=== PATIENT | female | born 1985 | race Caucasian/White ===

== ENCOUNTER 2019-04-16 11:23 | Inpatient (IN) ==
[2019-04-16] MEDS ORDERED: CITRIC ACID/SODIUM CITRATE 30 ML UDCUP PO ONE (11:29)
[2019-04-16] MEDS ORDERED: ceFAZolin 2,000 MG in SYRINGE 1 EACH IV ONE (11:29)
[2019-04-16] MEDS ORDERED: FAMOTIDINE 20 MG/2 ML VIAL IV ONE (11:29)
[2019-04-16] MEDS ORDERED: diphenhydrAMINE 50 MG/1 ML VIAL IV PRN ×2 (11:30)
[2019-04-16] MEDS ORDERED: PROMETHAZINE 25 MG/1 ML VIAL IM ONE ×2 (11:30→18:31)
[2019-04-16] MEDS ORDERED: hydrOXYzine HCL 25 MG/1 ML VIAL IM PRN (11:30)
[2019-04-16] MEDS ORDERED: ONDANSETRON 4 MG/2 ML VIAL IV ONE (11:30)
[2019-04-16] MEDS ORDERED: LACTATED RINGERS 1,000 ML IV ONE (11:30)
[2019-04-16 11:45] LABS: Basophils % 0.4 % (0.0-0.8); Eosinophils # 0.2 10*3/uL (0.0-0.87); Eosinophils % 1.9 % (0.00-10.9); Hematocrit 37.4 VOL% (35.7-47.0); Hemoglobin 12.4 GM/DL (12.0-16.0); Immature Granulocytes % 0.8 %; Immature Granulocytes Absolute 0.06 #; Lymphocytes # 1.8 10*3/uL (1.4-4.0); Lymphocytes % 22.4 % (21.3-54.2); Mean Corpuscular HGB Conc 33.2 GM/DL (32-36); Mean Platelet Volume 11.3 FL (9.6-12.0); Monocytes % 6.4 % (1.7-12.7); Neutrophils % 68.1 % (38.7-73.9); Platelet Count 153 T/CUMM (130-400); Red Cell Distribution Width 13.2 % (9.3-17.3)
[2019-04-16] MEDS ORDERED: PHENYLEPHRINE 1 MG/10 ML SYRINGE IV ONE (12:14)
[2019-04-16] MEDS ORDERED: BUPIVACAINE SPINAL 0.75% 2 ML AMP SPINAL ONE (12:14)
[2019-04-16] MEDS ORDERED: MORPHINE 10 MG/10 ML VIAL ONE (12:14)
[2019-04-16 12:19] LABS: Alanine Aminotransferase 15 U/L (13-56); Albumin 2.4 G/DL (3.4-5.0); Alkaline Phosphatase 197 U/L (45-117); Aspartate Amino Transferase 22 U/L (0-37); Bilirubin,Total < 0.39 MG/DL (0.2-1.0); Blood Urea Nitrogen 6 MG/DL (7-18); Calcium 8.9 MG/DL (8.5-10.1); Glucose 74 MG/DL (74-106); Osmolality,Calculated 271.7 MOS/KG (273-304); Total Protein 6.1 G/DL (6.4-8.3)
[2019-04-16] MEDS: LACTATED RINGERS 1,000 ML IV SCH ×2 (12:30→21:59)
[2019-04-16] MEDS ORDERED: OXYTOCIN/LR 20 UNIT/1,000 ML BAG IV ONE ×2 (13:01→13:42)
[2019-04-16] MEDS ORDERED: ACETAMINOPHEN 325 MG TABLET PO PRN (13:42)
[2019-04-16] MEDS ORDERED: RHO(D) IMMUNE GLOBULIN 300 MCG SYRINGE IM ONE (13:42)
[2019-04-16] MEDS ORDERED: ONDANSETRON 4 MG/2 ML VIAL IV PRN (13:42)
[2019-04-16] MEDS ORDERED: MAGNESIUM HYDROXIDE SUSP 30 ML UDCUP PO PRN (13:42)
[2019-04-16 13:45] LABS: Apearance,Urine CLEAR (Clear); Bacteria,Urine Occasional /HPF (Few); Bilirubin,Urine Negative (Negative); Blood, Urine Negative (Negative); Glucose,Urine (UA) Negative (Negative); Ketones,Urine 5 mg/dL (Negative); Nitrite,Urine Negative (Negative); Protein,Urine Negative; Squamous Epithelial Cell,Urine Occasional /HPF (0-10); Urine Color Straw (Yellow); Urine Specific Gravity 1.004 (1.001-1.035); Urine Urobilinogen < 2.0 EU/DL (0.2-1.0); WBC,Urine <1 /HPF (0-6)
[2019-04-16] MEDS ORDERED: ceFAZolin 1,000 MG in SYRINGE 1 EACH IV SCH (14:00)
[2019-04-16] MEDS ORDERED: MIDAZOLAM 2 MG/2 ML VIAL ONE (14:02)
[2019-04-16] MEDS: IBUPROFEN 800 MG TABLET PO PRN (15:54)
[2019-04-16] MEDS ORDERED: PROMETHAZINE 25 MG/1 ML VIAL ONE (18:30)
[2019-04-16] MEDS: ONDANSETRON 4 MG/2 ML VIAL IV PRN (20:17)
[2019-04-16] MEDS: KETOROLAC 30 MG/1 ML VIAL IV SCH (20:21)
[2019-04-16] MEDS: ACETAMINOPHEN 500 MG TABLET PO SCH (21:36)
[2019-04-16] MEDS: DOCUSATE SODIUM 100 MG CAPSULE PO SCH (21:36)
[2019-04-17] MEDS: ONDANSETRON 4 MG/2 ML VIAL IV PRN (00:46)
[2019-04-17] MEDS: KETOROLAC 30 MG/1 ML VIAL IV SCH (04:10)
[2019-04-17] MEDS: ACETAMINOPHEN 500 MG TABLET PO SCH ×3 (05:07→16:00)
[2019-04-17 07:13] LABS: Basophils # 0.1 10*3/uL (0.0-0.2); Basophils % 0.3 % (0.0-0.8); Eosinophils % 0.2 % (0.00-10.9); Hematocrit 34.3 VOL% (35.7-47.0); Hemoglobin 11.7 GM/DL (12.0-16.0); Immature Granulocytes % 0.6 %; Immature Granulocytes Absolute 0.11 #; Lymphocytes # 2.2 10*3/uL (1.4-4.0); Lymphocytes % 12.6 % (21.3-54.2); Mean Corpuscular HGB Conc 34.1 GM/DL (32-36); Mean Corpuscular Volume 89.1 FL (87-102); Monocytes % 7.2 % (1.7-12.7); Neutrophils % 79.1 % (38.7-73.9); Platelet Count 177 T/CUMM (130-400); Red Blood Count 3.85 MC/CUMM (3.8-5.5); Red Cell Distribution Width 13.2 % (9.3-17.3); White Blood Count 17.5 T/CUMM (4-12)
[2019-04-17] MEDS ORDERED: METOCLOPRAMIDE 10 MG TABLET PO PRN ×2 (07:26→08:00)
[2019-04-17] MEDS: DOCUSATE SODIUM 100 MG CAPSULE PO SCH ×2 (07:39→20:47)
[2019-04-17] MEDS: MULTIVITAMIN (PRENATAL) TABLET PO SCH (07:39)
[2019-04-17] MEDS ORDERED: ceFAZolin 1,000 MG in SYRINGE 1 EACH IV SCH (08:00)
[2019-04-17] MEDS ORDERED: KETOROLAC 10 MG TABLET PO SCH ×3 (10:00→16:00)
[2019-04-17] MEDS: LACTATED RINGERS 1,000 ML IV SCH ×2 (11:36→11:42)
[2019-04-17] MEDS: SIMETHICONE CHEW 80 MG TABLET PO PRN ×2 (14:18→20:47)
[2019-04-17] MEDS: METOCLOPRAMIDE 10 MG TABLET PO SCH (15:55)
[2019-04-18] MEDS: METOCLOPRAMIDE 10 MG TABLET PO SCH ×4 (05:02→23:44)
[2019-04-18] MEDS: MULTIVITAMIN (PRENATAL) TABLET PO SCH (08:38)
[2019-04-18] MEDS: DOCUSATE SODIUM 100 MG CAPSULE PO SCH ×2 (08:38→20:39)
[2019-04-18] MEDS: SIMETHICONE CHEW 80 MG TABLET PO PRN (08:42)
[2019-04-18] MEDS ORDERED: FUROSEMIDE 40 MG TABLET PO ONE (08:53)
[2019-04-18] MEDS: IBUPROFEN 800 MG TABLET PO PRN ×2 (11:45→20:40)
[2019-04-18] MEDS: FUROSEMIDE 40 MG TABLET PO PRN (17:16)
[2019-04-19] MEDS: FUROSEMIDE 40 MG TABLET PO PRN ×2 (05:45→15:16)
[2019-04-19] MEDS: IBUPROFEN 800 MG TABLET PO PRN (05:46)
[2019-04-19 07:26] VITALS: BP 133/76
[2019-04-19] MEDS: METOCLOPRAMIDE 10 MG TABLET PO SCH (08:55)
[2019-04-19] MEDS: DOCUSATE SODIUM 100 MG CAPSULE PO SCH (08:55)
[2019-04-19] MEDS: MULTIVITAMIN (PRENATAL) TABLET PO SCH (11:35)
== END 2019-04-19 15:10 | disposition home or self-care (01) | DRG 788 ==
LOC: N.LDOUT 11:23 → N.LD 11:28 → N.OB 20:06
PROVIDERS: ADMIT Specialist; ATTEND Specialist
PROC: LDCSECT (ICD-10-PCS; 2019-04-16 12:30)

== ENCOUNTER 2019-06-13 08:04 | Inpatient (IN) ==
[~2019-06-13 08:04] MED LIST: ceFAZolin 1,000 MG in SYRINGE 1 EACH IV ONE
[2019-06-13] MEDS ORDERED: DIAZEPAM 5 MG TABLET ONE (08:46)
[2019-06-13] MEDS ORDERED: ceFAZolin 1,000 MG VIAL ONE ×2 (08:46→16:08)
[2019-06-13] MEDS ORDERED: FAMOTIDINE 20 MG TABLET ONE (08:47)
[2019-06-13] MEDS ORDERED: DIAZEPAM 5 MG TABLET PO ONE (09:29)
[2019-06-13] MEDS ORDERED: FAMOTIDINE 20 MG TABLET PO ONE (09:29)
[2019-06-13] MEDS ORDERED: LACTATED RINGERS 1,000 ML IV SCH (09:30)
[2019-06-13] MEDS ORDERED: MIDAZOLAM 2 MG/2 ML VIAL ONE ×2 (11:24→16:42)
[2019-06-13] MEDS ORDERED: LIDOCAINE 1% 20 ML VIAL ONE (11:25)
[2019-06-13] MEDS ORDERED: BUPIVACAINE 0.25% /EPI 10 ML VIAL ONE (11:25)
[2019-06-13] MEDS ORDERED: TISSUE ADHESIVE 1 EACH APPLICATOR TOP ONE (11:25)
[2019-06-13] MEDS ORDERED: MEPERIDINE 25 MG/1 ML VIAL IV PRN (14:02)
[2019-06-13] MEDS ORDERED: HYDROmorphone 2 MG/1 ML VIAL IV PRN (14:02)
[2019-06-13] MEDS ORDERED: PROMETHAZINE INJ 25 MG in SODIUM CHLORIDE 0.9% 50 ML IV PRN (14:02)
[2019-06-13] MEDS ORDERED: ONDANSETRON 4 MG/2 ML VIAL IV PRN (14:02)
[2019-06-13] MEDS ORDERED: HYDROmorphone 2 MG/1 ML VIAL ONE (14:19)
[2019-06-13] MEDS ORDERED: ACETAMINOPHEN 1,000 MG/100 ML VIAL IV ONE ×2 (14:20→16:43)
[2019-06-13] MEDS ORDERED: SEVOFLURANE 1 UNIT/15 MINUTE INH ONE (16:42)
[2019-06-13] MEDS ORDERED: PROPOFOL 200 MG/20 ML VIAL IV ONE (16:42)
[2019-06-13] MEDS ORDERED: fentaNYL 100 MCG/2 ML VIAL ONE (16:42)
[2019-06-13] MEDS ORDERED: ONDANSETRON 4 MG/2 ML VIAL ONE ×2 (16:43→16:50)
[2019-06-13] MEDS ORDERED: NEOSTIGMINE 10 MG/10 ML VIAL ONE (16:43)
[2019-06-13] MEDS ORDERED: ROCURONIUM 100 MG/10 ML VIAL IV ONE (16:43)
[2019-06-13] MEDS ORDERED: GLYCOPYRROLATE 0.4 MG/2 ML VIAL ONE (16:43)
[2019-06-13] MEDS ORDERED: DEXAMETHASONE 4 MG/1 ML VIAL ONE (16:43)
[2019-06-13] MEDS ORDERED: LACTATED RINGERS 1,000 ML IV ONE (16:43)
[2019-06-13] MEDS ORDERED: PHENYLEPHRINE 1 MG/10 ML SYRINGE IV ONE (16:43)
[2019-06-13] MEDS ORDERED: MEPERIDINE 25 MG/1 ML VIAL ONE (16:50)
[2019-06-13] MEDS: KETOROLAC 15 MG/1 ML VIAL IV SCH ×2 (18:07→23:26)
[2019-06-13] MEDS ORDERED: CYCLOBENZAPRINE 10 MG TABLET PO SCH (21:00)
[2019-06-13] MEDS: busPIRone 15 MG TABLET PO SCH (22:06)
[2019-06-13] MEDS: CLINDAMYCIN INJ 900 MG in PREMIX 1 EACH IV SCH (23:24)
[2019-06-13] MEDS: HYDROmorphone 2 MG/1 ML VIAL IV PRN (23:42)
[2019-06-14] MEDS: LACTATED RINGERS 1,000 ML IV SCH ×3 (01:06→10:21)
[2019-06-14] MEDS: HYDROmorphone 2 MG/1 ML VIAL IV PRN ×6 (02:46→21:08)
[2019-06-14] MEDS: KETOROLAC 15 MG/1 ML VIAL IV SCH ×3 (05:53→16:45)
[2019-06-14] MEDS: CLINDAMYCIN INJ 900 MG in PREMIX 1 EACH IV SCH (06:00)
[2019-06-14] MEDS: LEVOTHYROXINE 100 MCG TABLET PO SCH (06:05)
[2019-06-14] MEDS: PROMETHAZINE 25 MG/1 ML VIAL IM PRN ×2 (07:53→16:53)
[2019-06-14] MEDS ORDERED: MULTIVITAMIN (CENTRUM) TABLET PO SCH (09:00)
[2019-06-14] MEDS: ENOXAPARIN 40 MG/0.4 ML SYRINGE SUBCUT SCH (09:40)
[2019-06-14] MEDS: CYCLOBENZAPRINE 10 MG TABLET PO SCH ×2 (09:40→21:13)
[2019-06-14] MEDS: MELOXICAM 7.5 MG TABLET PO SCH (09:40)
[2019-06-14] MEDS: busPIRone 15 MG TABLET PO SCH ×2 (09:40→21:13)
[2019-06-14] MEDS: SERTRALINE 50 MG TABLET PO SCH (09:40)
[2019-06-14] MEDS: SULFAMETHOX/TRIMETHOPRIM 800-160 MG TABLET PO SCH ×2 (10:21→21:13)
[2019-06-14 11:33] LABS: Apearance,Urine CLEAR (Clear); Bilirubin,Urine Negative (Negative); Blood, Urine Negative (Negative); Glucose,Urine (UA) Negative (Negative); Ketones,Urine Negative (Negative); Nitrite,Urine Negative (Negative); Protein,Urine Negative; RBC,Urine <1 /HPF (0-4); Urine Color Straw (Yellow); Urine Specific Gravity 1.003 (1.001-1.035); Urine Urobilinogen < 2.0 EU/DL (0.2-1.0); WBC,Urine <1 /HPF (0-6)
[2019-06-14] MEDS: ONDANSETRON 4 MG/2 ML VIAL IV PRN (13:38)
[2019-06-14] MEDS: TAMSULOSIN 0.4 MG CAPSULE PO SCH (13:40)
[2019-06-15] MEDS: ONDANSETRON 4 MG/2 ML VIAL IV PRN (00:14)
[2019-06-15] MEDS: KETOROLAC 15 MG/1 ML VIAL IV SCH ×4 (00:16→19:59)
[2019-06-15] MEDS: LEVOTHYROXINE 100 MCG TABLET PO SCH (06:00)
[2019-06-15] MEDS: HYDROmorphone 2 MG/1 ML VIAL IV PRN ×4 (06:09→20:08)
[2019-06-15] MEDS: CYCLOBENZAPRINE 10 MG TABLET PO SCH ×2 (09:18→20:44)
[2019-06-15] MEDS: busPIRone 15 MG TABLET PO SCH ×2 (09:19→20:44)
[2019-06-15] MEDS: MELOXICAM 7.5 MG TABLET PO SCH (09:19)
[2019-06-15] MEDS: TAMSULOSIN 0.4 MG CAPSULE PO SCH (09:19)
[2019-06-15] MEDS: SULFAMETHOX/TRIMETHOPRIM 800-160 MG TABLET PO SCH ×2 (09:19→20:44)
[2019-06-15] MEDS: SERTRALINE 50 MG TABLET PO SCH (09:19)
[2019-06-15] MEDS: ENOXAPARIN 40 MG/0.4 ML SYRINGE SUBCUT SCH (09:20)
[2019-06-16] MEDS: HYDROmorphone 2 MG/1 ML VIAL IV PRN ×7 (00:02→22:22)
[2019-06-16] MEDS: KETOROLAC 15 MG/1 ML VIAL IV SCH ×3 (00:07→12:04)
[2019-06-16] MEDS: LEVOTHYROXINE 100 MCG TABLET PO SCH (06:45)
[2019-06-16] MEDS: ENOXAPARIN 40 MG/0.4 ML SYRINGE SUBCUT SCH (09:13)
[2019-06-16] MEDS: busPIRone 15 MG TABLET PO SCH ×2 (09:15→21:14)
[2019-06-16] MEDS: MELOXICAM 7.5 MG TABLET PO SCH (09:15)
[2019-06-16] MEDS: TAMSULOSIN 0.4 MG CAPSULE PO SCH (09:16)
[2019-06-16] MEDS: CYCLOBENZAPRINE 10 MG TABLET PO SCH ×2 (09:16→21:14)
[2019-06-16] MEDS: SULFAMETHOX/TRIMETHOPRIM 800-160 MG TABLET PO SCH ×2 (09:16→21:14)
[2019-06-16] MEDS: SERTRALINE 50 MG TABLET PO SCH (09:16)
[2019-06-17] MEDS: ONDANSETRON 4 MG/2 ML VIAL IV PRN (02:36)
[2019-06-17] MEDS: HYDROmorphone 2 MG/1 ML VIAL IV PRN ×4 (02:36→14:44)
[2019-06-17] MEDS: LEVOTHYROXINE 100 MCG TABLET PO SCH (06:08)
[2019-06-17] MEDS: SERTRALINE 50 MG TABLET PO SCH (09:03)
[2019-06-17] MEDS: SULFAMETHOX/TRIMETHOPRIM 800-160 MG TABLET PO SCH (09:03)
[2019-06-17] MEDS: ENOXAPARIN 40 MG/0.4 ML SYRINGE SUBCUT SCH (09:03)
[2019-06-17] MEDS: busPIRone 15 MG TABLET PO SCH (09:03)
[2019-06-17] MEDS: MELOXICAM 7.5 MG TABLET PO SCH (09:04)
[2019-06-17] MEDS: CYCLOBENZAPRINE 10 MG TABLET PO SCH (09:04)
[2019-06-17] MEDS: TAMSULOSIN 0.4 MG CAPSULE PO SCH (09:04)
[2019-06-17 12:53] VITALS: BP 114/71
[2019-06-17] MEDS: PROMETHAZINE 25 MG/1 ML VIAL IM PRN (14:10)
== END 2019-06-17 17:14 | disposition home or self-care (01) | DRG 355 ==
LOC: N.SDSINP → N.OR 08:04 → N.SDSINP 08:05 → EDSTATUS 13:45 → N.3E 17:22
PROVIDERS: ADMIT Surgery; ATTEND Surgery